=== PATIENT | female | born 1985 | race Caucasian/White ===

== ENCOUNTER 2018-12-11 22:58 | Emergency (ER) | payer MEDICAID ==
[2018-12-11 23:07] VITALS: BMI 29.2
[2018-12-11 23:12] VITALS: TEMP 98.3
[2018-12-11] MEDS ORDERED: Sodium Chloride 0.9% 1,000 ML IV STA (23:41)
--- NOTE | 2018-12-11 23:58 | ED PDOC ---
Arrival/HPI - General Historian: Patient - History of Present Illness Narrative History of Present Illness (Text): 12/11/18 23:55 33yo female with no pmhx who present with complaint of epigastric abdominal pain with nausea, vomiting and upper back pain. States abdominal pain started 3days ago and vomiting/back pain started today. did not take any medication for her symptoms. Reports having a BM but still feels constipated. Denies fever, chills, nausea, chest pain, melena, hematemesis, any other complaint. <Richard Reece - Last Filed: 12/12/18 01:51> <Wade Sarabia - Last Filed: 12/12/18 06:24> - General Chief Complaint: GI Problem Time Seen by Provider: 12/11/18 23:12 Past Medical History - Provider Review Nursing Documentation Reviewed: Yes - Infectious Disease Hx of Infectious Diseases: None - Reproductive Currently : No - Psychiatric Hx Substance Use: No - Anesthesia Hx Anesthesia: No Hx Anesthesia Reactions: No Hx Malignant Hyperthermia: No <Richard Reece A - Last Filed: 12/12/18 01:51> Family/Social History - Physician Review Nursing Documentation Reviewed: Yes Family/Social History: Unknown Family HX Smoking Status: Never Smoked Hx Alcohol Use: No Hx Substance Use: No <Richard Reece A - Last Filed: 12/12/18 01:51> Allergies/Home Meds <Richard Reece A - Last Filed: 12/12/18 01:51> <Wade Sarabia - Last Filed: 12/12/18 06:24> Allergies/Adverse Reactions: Allergies No Known Allergies Allergy (Verified 05/07/16 17:58) Home Medications: Home Meds Medication Instructions Recorded Confirmed RX: Doxycycline Hyclate [Doryx] 1 cap PO BID 12/11/18 12/11/18 Review of Systems - Physician Review All systems were reviewed & negative as marked: Yes - Review of Systems Constitutional: Normal Eyes: Normal ENT: Normal Respiratory: Normal Cardiovascular: Normal Gastrointestinal: Abdominal Pain, Nausea, Vomiting. absent: Constipation, Diarrhea, Hematochezia, Hematemesis Genitourinary Female: Normal Musculoskeletal: Back Pain Skin: Normal Neurological: Normal Endocrine: Normal Hemo/Lymphatic: Normal Psychiatric: Normal <Richard Reece A - Last Filed: 12/12/18 01:51> Physical Exam Vital Signs Reviewed: Yes Vital Signs Temp Pulse Resp BP Pulse Ox 12/11/18 23:11 98.3 F 109 H 18 120/83 95 Temperature: Afebrile Blood Pressure: Normal Pulse: Regular Respiratory Rate: Normal Appearance: Positive for: Well-Appearing, Non-Toxic, Comfortable Pain Distress: None Mental Status: Positive for: Alert and Oriented X 3 - Systems Exam Head: Present: Atraumatic, Normocephalic Pupils: Present: PERRL Extroacular Muscles: Present: EOMI Conjunctiva: Present: Normal Mouth: Present: Moist Mucous Membranes Neck: Present: Normal Range of Motion Respiratory/Chest: Present: Clear to Auscultation, Good Air Exchange. No: Respiratory Distress, Accessory Muscle Use Cardiovascular: Present: Regular Rate and Rhythm, Normal S1, S2. No: Murmurs Abdomen: Present: Tenderness (Epigastric), Normal Bowel Sounds (Hyperactive on upper abdomen), Guarding (Voluntary), Other (sofr). No: Distention, Peritoneal Signs, Rebound, McBurney's Point Tender, Rovsing's Sign Present Back: Present: Paraspinal Tenderness (Parathoracic tenderness). No: CVA Tenderness, Midline Tenderness, Pain with Leg Raise Upper Extremity: Present: Normal Inspection. No: Cyanosis, Edema Lower Extremity: Present: Normal Inspection. No: Edema Neurological: Present: GCS=15, CN II-XII Intact, Speech Normal Skin: Present: Warm, Dry, Normal Color. No: Rashes Psychiatric: Present: Alert, Oriented x 3, Normal Insight, Normal Concentration <Diru,Happiness A - Last Filed: 12/12/18 01:51> Vital Signs Temp Pulse Resp BP Pulse Ox 12/12/18 01:47 98.3 F 90 18 130/82 98 12/11/18 23:11 98.3 F 109 H 18 120/83 95 <Wade Sarabia - Last Filed: 12/12/18 06:24> Medical Decision Making ED Course and Treatment: 12/12/18 01:51 33yo female in ED for abdominal pain with nausea and vomiting Labs 1L NS, Pepcid, Zofran, Toradol Pt continued to complain of pain and abd/pelvic CT was ordered Moderate blood was noted in her UA 12/12/18 01:[address] report Case was endorsed to Dr. sarabia to f/u CT and dispo pt - Medication Orders Current Medication Orders: Sodium Chloride (Sodium Chloride 0.9%) 1,000 mls @ 1,000 mls/hr IV .Q1H STA Stop: 12/12/18 00:40 Discontinued Medications Famotidine (Pepcid) 20 mg IVP STAT STA Stop: 12/11/18 23:42 Ondansetron HCl (Zofran Inj) 4 mg IVP STAT STA Stop: 12/11/18 23:42 <Richard Reece A - Last Filed: 12/12/18 01:51> ED Course and Treatment: CT Abdomen and Pelvis: Chest: The visualized lung bases are clear. Abdomen: The kidneys are normal in size bilaterally. There is no evidence of hydronephrosis or nephrolithiasis. The liver, spleen, pancreas, gallbladder and adrenal glands are unremarkable. The aorta demonstrates normal caliber and contour. There is no abdominal lymphadenopathy or ascites. Pelvis: The bowel is unremarkable, with no obstructive or inflammatory changes. The appendix is normal. The urinary bladder is within normal limits. There is no pelvic lymphadenopathy or ascites. The other pelvic structures appear unremarkable. Bones: There are no suspicious osseous abnormalities seen. Impression: Unremarkable CT examination of the abdomen and pelvis. Electronically signed on Dec 12, 2018 2:50:23 AM EST by: Hong Payan M.D., SHEILA Certified By ABR & CBCCT Fellowship Trained MRI and CT Specialist - Lab Interpretations Lab Results: PT 16.1 SECONDS (9.4-12.5) H 12/12/18 00:21 INR 1.45 12/12/18 00:21 APTT 43.9 Seconds (26.9-38.3) H 12/12/18 00:21 Total Bilirubin 0.4 mg/dL (0.2-1.3) 12/12/18 00:21 AST 29 U/L (14-36) 12/12/18 00:21 ALT 31 U/L (7-56) 12/12/18 00:21 Alkaline Phosphatase 64 U/L (38-126) 12/12/18 00:21 Total Protein 7.5 g/dL (5.8-8.3) 12/12/18 00:21 Albumin 4.5 g/dL (3.0-4.8) 12/12/18 00:21 Globulin 3.0 gm/dL 12/12/18 00:21 Albumin/Globulin Ratio 1.5 (1.1-1.8) 12/12/18 00:21 Lipase 116 U/L (23-300) 12/12/18 00:21 Urine Color Yellow (YELLOW) 12/12/18 00:30 Urine Appearance Clear (CLEAR) 12/12/18 00:30 Urine pH 6.0 (4.7-8.0) 12/12/18 00:30 Ur Specific [place] 1.020 (1.005-1.035) 12/12/18 00:30 Urine Protein Negative mg/dL (<30 mg/dL) 12/12/18 00:30 Urine Glucose (UA) Negative mg/dL (NEGATIVE) 12/12/18 00:30 Urine Ketones Negative mg/dL (NEGATIVE) 12/12/18 00:30 Urine Blood Moderate (NEGATIVE) H 12/12/18 00:30 Urine Nitrate Negative (NEGATIVE) 12/12/18 00:30 Urine Bilirubin Negative (NEGATIVE) 12/12/18 00:30 Urine Urobilinogen 0.2 E.U./dL (<1 E.U./dL) 12/12/18 00:30 Ur Leukocyte Esterase Negative Joshua/uL (NEGATIVE) 12/12/18 00:30 Urine RBC 2 - 5 /hpf (0-2) H 12/12/18 00:30 Urine WBC 0 - 2 /hpf (0-6) 12/12/18 00:30 Ur Epithelial Cells 0 - 2 /hpf (0-5) 12/12/18 00:30 - RAD Interpretation Radiology Orders: 12/12/18 00:54 ABD & PELVIS W/O PO OR IV CONT [CT] Stat Medical Anthropology Director: Radiologist - Medication Orders Current Medication Orders: Discontinued Medications Famotidine (Pepcid) 20 mg IVP STAT STA Stop: 12/11/18 23:42 Last Admin: 12/12/18 00:22 Dose: 20 mg IVP Administration Document 12/12/18 00:22 DM (Rec: 12/12/18 00:22 DM [id number]) Charges for Administration # of IVP Administrations 1 Sodium Chloride (Sodium Chloride 0.9%) 1,000 mls @ 1,000 mls/hr IV .Q1H STA Stop: 12/12/18 00:40 Last Admin: 12/12/18 00:21 Dose: 1,000 mls/hr eMAR Start Stop Document 12/12/18 00:21 DM (Rec: 12/12/18 00:21 DM [id number]) Intravenous Solution Start Date 12/12/18 Start Time 00:21 Ketorolac Tromethamine (Toradol) 30 mg IVP STAT STA Stop: 12/12/18 00:55 Last Admin: 12/12/18 01:07 Dose: 30 mg MAR Pain Assessment Document 12/12/18 01:07 DM (Rec: 12/12/18 01:07 DM [id number]) Pain Reassessment Is this a pain reassessment? Yes Sleep Is patient sleeping during reassessment? No Presence of Pain Presence of Pain Yes Pain Scale Used Protocol: PSCALES Pain Scale Used Numeric Location Pain Location Body Site Abdomen Description Description Constant Acceptable Level of Pain 9 Pain Behavior Moaning Guarding Withdrawal from Touch Grasping Site Pain not relieved and LIP/MD was Yes notified IVP Administration Document 12/12/18 01:07 DM (Rec: 12/12/18 01:07 DM [id number]) Charges for Administration # of IVP Administrations 1 Ondansetron HCl (Zofran Inj) 4 mg IVP STAT STA Stop: 12/11/18 23:42 Last Admin: 12/12/18 00:21 Dose: 4 mg IVP Administration Document 12/12/18 00:21 DM (Rec: 12/12/18 00:21 DM [id number]) Charges for Administration # of IVP Administrations 1 <Wade Sarabia - Last Filed: 12/12/18 06:24> - PA / PLASTER MAKER / Resident Statement TIFFANY has reviewed & agrees with the documentation as recorded. TIFFANY has examined the patient and agrees with the treatment plan. <Wade Sarabia - Last Filed: 12/12/18 06:24> Disposition/Present on Arrival - Present on Arrival Any Indicators Present on Arrival: No History of DVT/PE: No History of Uncontrolled Diabetes: No Urinary Catheter: No History of Decub. Ulcer: No History Surgical Site Infection Following: None - Disposition Have Diagnosis and Disposition been Completed?: Yes <Richard Reece - Last Filed: 12/12/18 01:51> - Present on Arrival Any Indicators Present on Arrival: No - Disposition Have Diagnosis and Disposition been Completed?: Yes Disposition Time: 03:45 <Wade Sarabia - Last Filed: 12/12/18 06:24> - Disposition Diagnosis: Abdominal pain Disposition: HOME/ ROUTINE Condition: GOOD Discharge Instructions (ExitCare): Acute Abdomen (Belly Pain) Prescriptions: Pantoprazole Sodium [Protonix] 40 mg PO DAILY #14 ect Referrals: Danie Michael MD [Primary Care Provider] - Follow up with primary Forms: [facility] (Nepalese)
[2018-12-12 00:37] LABS: BASO # 0.02 K/mm3 (0.0-2.0); BASO % 0.2 % (0.0-3.0); EOS # 0.1 (0.0-0.7); EOS % 1.1 % (1.5-5.0); HEMOGLOBIN 13.7 g/dL (12.0-16.0); LYMPH # 2.8 (1.2-3.4); LYMPH % 24.7 % (22.0-35.0); MEAN CELL VOLUME 90.5 fl (80.0-105.0); MEAN CORPUSCULAR HEMOGLOBIN 30.2 pg (25.0-35.0); MEAN CORPUSCULAR HGB CONC 33.4 g/dl (31.0-37.0); MEAN PLATELET VOLUME 10.9 fl (7.0-11.0); MONO # 0.7 (0.1-0.6); MONO % 6.2 % (1.0-6.0); RBC 4.53 10^6/uL (3.5-6.1); RED CELL DISTRIBUTION WIDTH 12.9 % (11.5-14.5); WHITE BLOOD COUNT 11.4 10^3/uL (4.5-11.0)
[2018-12-12 00:42] LABS: INR 1.45; PARTIAL THROMBOPLASTIN TIME 43.9 Seconds (26.9-38.3); PROTHROMBIN TIME 16.1 SECONDS (9.4-12.5)
[2018-12-12 00:44] LABS: ALB/GLOB RATIO 1.5 (1.1-1.8); ALBUMIN 4.5 g/dL (3.0-4.8); ALT/SGPT 31 U/L (7-56); AST/SGOT 29 U/L (14-36); BLOOD UREA NITROGEN 15 mg/dL (7-21); CALCIUM 9.5 mg/dL (8.4-10.5); GFR NON-AFRICAN AMERICAN > 60; LIPASE 116 U/L (23-300)
[2018-12-12 00:51] LABS: URINE BILIRUBIN NEGATIVE (NEGATIVE); URINE BLOOD MODERATE (NEGATIVE); URINE GLUCOSE (UA) NEGATIVE (NEGATIVE); URINE LEUKOCYTE ESTERASE NEGATIVE Leu/uL (NEGATIVE); URINE PROTEIN NEGATIVE mg/dL (<30 mg/dL); URINE UROBILINOGEN 0.2 E.U./dL (<1 E.U./dL)
[2018-12-12 00:53] LABS: URINE COLOR YELLOW (YELLOW)
[2018-12-12 00:54] LABS: URINE APPEARANCE CLEAR (CLEAR)
[2018-12-12 01:18] LABS: URINE EPITHELIAL CELLS 0 - 2 /hpf (0-5); URINE WBC 0 - 2 /hpf (0-6)
[2018-12-12 03:41] VITALS: BP 134/68; PULSE 85; RESP 20; O2SAT 99
--- NOTE | 2018-12-12 10:54 | CT ---
Date of service: 12/12/2018 PROCEDURE: CT Abdomen and Pelvis HISTORY: Abdominal pain COMPARISON: None. TECHNIQUE: Contiguous axial images of the abdomen and pelvis performed without oral or intravenous contrast material. Additional 2D sagittal and coronal reformats generated... Radiation dose: Total exam DLP = 548.19 mGy-cm. This CT exam was performed using one or more of the following dose reduction techniques: Automated exposure control, adjustment of the mA and/or kV according to patient size, and/or use of iterative reconstruction technique. FINDINGS: LOWER THORAX: Heart size normal. No significant pericardial effusion. Small hiatal hernia. LIVER: Liver is upper limits of normal/mildly enlarged measuring nearly 19 cm in CC dimension. No obvious hepatic masses or collections. GALLBLADDER AND BILE DUCTS: Unremarkable. PANCREAS: Unremarkable. No mass. No ductal dilatation. SPLEEN: Unremarkable. No splenomegaly. ADRENALS: Unremarkable. KIDNEYS AND URETERS: Unremarkable. No stone or hydronephrosis. BLADDER: Grossly unremarkable. REPRODUCTIVE: Adnexal cyst small right-sided adnexal cyst measuring 18.5 x 12.5 mm. Follow-up nonemergent pelvic ultrasound could be performed for further evaluation APPENDIX: No evidence of acute appendicitis. BOWEL: Unremarkable. No obstruction. No gross mural thickening. PERITONEUM: Unremarkable. No fluid collection. No free air. LYMPH NODES: Unremarkable. No enlarged lymph nodes. VASCULATURE: Unremarkable. No aortic aneurysm. No aortic atherosclerotic calcification or mural plaque present. BONES: Minimal multilevel degenerative spondylosis of the lower thoracic spine. OTHER FINDINGS: None. IMPRESSION: Borderline-mildly enlarged liver measuring nearly 19 cm in CC dimension. Probable small right adnexal cyst for which ultrasound follow-up could be performed if clinically indicated This report was placed in PA review folder follow up.
== END 2018-12-12 03:41 | disposition home or self-care (01) ==
LOC: ED 22:58
DX: R10.13 Epigastric pain (principal)
CPT/HCPCS: 74176; 80053; 81001; 81025; 83690; 83735; 85025; 85610; 85730; 96374; 96375; 99284; J1885; J2405; J7030

== ENCOUNTER 2018-12-12 19:36 | Observation (INO) | payer MEDICAID ==
--- NOTE | 2018-12-12 21:23 | ED PDOC ---
Arrival/HPI - General Chief Complaint: Abdominal Pain Time Seen by Provider: 12/12/18 21:19 Historian: Patient - History of Present Illness Narrative History of Present Illness (Text): 12/12/18 21:23 Monty Cobb is a 33 year old female, with no significant past medical history, who presents to the Emergency department complaining of abdominal pain. Patient states she has been experiencing upper abdominal pain with associated nausea and vomiting. Patient was seen in the ED yesterday for similar complaints, had a CT scan performed, and was discharged home. Preliminary CT scan report was unremarkable, however patient was called back today after official CT scan report noted a borderline-mildly enlarged liver and small right adnexal cyst. Patient states she is still experiencing abdominal pain. Patient denies any fever, chills, chest pain, shortness of breath, urinary symptoms, back pain, neck pain, headache, dizziness, or any other complaints. Symptom Onset: Gradual Symptom Course: Unchanged Activities at Onset: Light Context: Home Past Medical History - Provider Review Nursing Documentation Reviewed: Yes - Infectious Disease Hx of Infectious Diseases: None - Reproductive Currently : No - Psychiatric Hx Substance Use: No - Anesthesia Hx Anesthesia: No Hx Anesthesia Reactions: No Hx Malignant Hyperthermia: No Family/Social History - Physician Review Nursing Documentation Reviewed: Yes Family/Social History: Unknown Family HX Smoking Status: Never Smoked Hx Alcohol Use: No Hx Substance Use: No Allergies/Home Meds Allergies/Adverse Reactions: Allergies No Known Allergies Allergy (Verified 05/07/16 17:58) Home Medications: Home Meds Medication Instructions Recorded Confirmed Doxycycline Hyclate [Doryx] 1 cap PO BID 12/11/18 12/11/18 Review of Systems - Physician Review All systems were reviewed & negative as marked: Yes - Review of Systems Constitutional: Normal. absent: Fevers Eyes: Normal ENT: Normal Respiratory: Normal. absent: SOB, Cough Cardiovascular: Normal. absent: Chest Pain Gastrointestinal: Abdominal Pain, Nausea, Vomiting Genitourinary Female: Normal. absent: Dysuria, Frequency, Hematuria, Urine Output Changes Musculoskeletal: Normal. absent: Back Pain, Neck Pain Skin: Normal. absent: Rash Neurological: Normal. absent: Headache, Dizziness Endocrine: Normal Hemo/Lymphatic: Normal Psychiatric: Normal Physical Exam Vital Signs Reviewed: Yes Vital Signs Temp Pulse Resp BP Pulse Ox 12/12/18 19:36 98 F 90 18 135/90 97 Temperature: Afebrile Blood Pressure: Normal Pulse: Regular Respiratory Rate: Normal Appearance: Positive for: Well-Appearing, Non-Toxic, Comfortable Pain Distress: None Mental Status: Positive for: Alert and Oriented X 3 - Systems Exam Head: Present: Atraumatic, Normocephalic Pupils: Present: PERRL Extroacular Muscles: Present: EOMI Conjunctiva: Present: Normal Mouth: Present: Moist Mucous Membranes Neck: Present: Normal Range of Motion Respiratory/Chest: Present: Clear to Auscultation, Good Air Exchange. No: Respiratory Distress, Accessory Muscle Use Cardiovascular: Present: Regular Rate and Rhythm, Normal S1, S2. No: Murmurs Abdomen: No: Tenderness, Distention, Peritoneal Signs Back: Present: Normal Inspection Upper Extremity: Present: Normal Inspection. No: Cyanosis, Edema Lower Extremity: Present: Normal Inspection. No: Edema Neurological: Present: GCS=15, CN II-XII Intact, Speech Normal Skin: Present: Warm, Dry, Normal Color. No: Rashes Psychiatric: Present: Alert, Oriented x 3, Normal Insight, Normal Concentration Medical Decision Making ED Course and Treatment: 12/12/18 21:23 Impression: 33 year old female complaining of upper abdominal pain, nausea, and vomiting. Plan: -- US Abdomen -- Transvaginal US -- Labs, lipase -- Urinalysis -- IV fluids -- Morphine -- Reassess and disposition Prior Visits: Notes and results from previous visits were reviewed. Progress Notes: 12/12/18 22:35 US Abdomen: LIVER: Unremarkable. GALLBLADDER: No gallstone. No gallbladder wall thickening. No pericholecystic fluid. COMMON BILE DUCT: No dilation. 4 mm. PANCREAS: Unremarkable where visualized. The distal pancreas is obscured by overlying bowel gas. KIDNEYS: Unremarkable. Normal renal contours. No renal mass or calculus. No hydronephrosis. SPLEEN: Unremarkable. AORTA: No aneurysm. IVC: Unremarkable as visualized. MISCELLANEOUS: No other significant findings identified. IMPRESSION: Unremarkable complete abdominal ultrasound. Electronically signed on Dec 12, 2018 10:31:17 PM EST by: Hong Payan M.D., SHEILA Certified By ABR & CBCCT Fellowship Trained MRI and CT Specialist 12/12/18 23:00 Transvaginal US: ENDOMETRIUM: Normal thickness of 3.4 mm in AP dimension. UTERUS/CERVIX: The uterus appears within normal limits measuring 9.4 x 4.2 x 5.9 cm in longitudinal, AP and transverse dimensions respectively. No uterine fibroid or other mass evident. RIGHT OVARY: Normal Doppler flow. Slightly enlarged measuring approximate 4.1 x 2.1 cm with estimated volume of 21.9 cubic centimeters. Within the right ovary there is demonstration of a 2.2 x 1.8 x 1.8 cm follicular cyst. LEFT OVARY: Normal Doppler flow. Normal size of the left ovary which measured 2.7 x 2.6 x 2.2 cm. The estimated left ovarian volume is 7.7 cm. No abnormal mass. FREE FLUID: Minimal free fluid within the posterior cul-de-sac. IMPRESSION: 1. Right ovarian enlargement with measurements as given above. 2. A 2.2 x 1.8 x 1.8 cm right ovarian follicular cyst is noted. 3. A small volume of fluid is seen in the posterior cul-de-sac. Electronically signed on Dec 12, 2018 10:57:38 PM EST by: Hong Payan M.D., SHEILA Certified By ABR & CBCCT Fellowship Trained MRI and CT Specialist 12/12/18 23:27 Case discussed with medical radiation therapist immigration associate, who is aware and agrees with plan. 12/12/18 23:[address] Ted Baxter, who is aware and agrees with plan. Accepts pt in to hospitalist service. Pt will go to [facility] observation for abdominal pain. - Lab Interpretations I have reviewed the lab results: Yes - RAD Interpretation Flat Breakdown Processor: Radiologist Disposition/Present on Arrival - Present on Arrival Any Indicators Present on Arrival: No History of DVT/PE: No History of Uncontrolled Diabetes: No Urinary Catheter: No History of Decub. Ulcer: No History Surgical Site Infection Following: None - Disposition Have Diagnosis and Disposition been Completed?: Yes Diagnosis: Abdominal pain Disposition: HOSPITALIZED Disposition Time: 23:50 Condition: FAIR
[2018-12-12] MEDS ORDERED: Morphine 2 mg/ml ISec IVP STA ×2 (21:25→23:55)
[2018-12-12] MEDS: Sodium Chloride 0.9% 1,000 ML IV SCH (21:49)
[2018-12-12 21:54] LABS: BASO # 0.02 K/mm3 (0.0-2.0); BASO % 0.2 % (0.0-3.0); EOS # 0.1 (0.0-0.7); EOS % 0.9 % (1.5-5.0); HEMOGLOBIN 12.5 g/dL (12.0-16.0); LYMPH # 2.3 (1.2-3.4); LYMPH % 23.8 % (22.0-35.0); MEAN CELL VOLUME 91.4 fl (80.0-105.0); MEAN CORPUSCULAR HEMOGLOBIN 29.7 pg (25.0-35.0); MEAN CORPUSCULAR HGB CONC 32.5 g/dl (31.0-37.0); MEAN PLATELET VOLUME 10.7 fl (7.0-11.0); MONO % 9.9 % (1.0-6.0); RBC 4.21 10^6/uL (3.5-6.1); RED CELL DISTRIBUTION WIDTH 13.2 % (11.5-14.5); WHITE BLOOD COUNT 9.7 10^3/uL (4.5-11.0)
[2018-12-12 22:04] LABS: INR 1.5; PARTIAL THROMBOPLASTIN TIME 43.5 Seconds (26.9-38.3); PROTHROMBIN TIME 16.7 SECONDS (9.4-12.5)
[2018-12-12 22:09] LABS: ALB/GLOB RATIO 1.4 (1.1-1.8); ALBUMIN 4.2 g/dL (3.0-4.8); ALT/SGPT 25 U/L (7-56); AST/SGOT 22 U/L (14-36); BLOOD UREA NITROGEN 11 mg/dL (7-21); CALCIUM 8.8 mg/dL (8.4-10.5); GFR NON-AFRICAN AMERICAN > 60; LIPASE 57 U/L (23-300)
--- NOTE | 2018-12-13 00:07 | CP.PCM.HP ---
History of Present Illness - History of Present Illness History of Present Illness: Medicine History and Physical for Hospitalist Service, Dr. Richard Morton, DO PGY-1 This is a 33 y o female with no remarkable PMhx who presents to the ED c/o b/l upper abdominal pain, R > L for 4 days. States she had colposcopy performed in clinic for abnormal pap smear results 4 days ago, and states the abd pain started several hrs after she had her procedure. Denies any other inciting factors that might have elicited her symptoms. Denies hx sick contacts, recent URI symptoms, trying any recent foods, or recent travel. Pt states she recently went to ED at [facility] [place] [facility] yesterday for the same symptoms, had CT scan done, and was sent home with script of Protonix. Pt states she took 1 dose of that medication, did not feel relief of symptoms, and thus decided to come to the ED again to be evaluated. States she feels generalized "achiness" all over her belly, admits to gas pain, states that she is unable to pass flatus. Reports last BM was 2 days ago. States that from time to time she has periods where she does not have a bowel movement for several days, even when she is feeling well. Admits to belching frequently, c/o associated heartburn-like symptoms. States she tried to induce vomiting to relieve her symptoms without relief. Admits to associated nausea. Also admits to diffuse back pain present in the entirety of her spine, more present in her lower back b/l. Admits to subjective fever and chills. D enies diarrhea. Denies headache, dizziness, shortness of breath, urinary complaints, or other symptoms currently. PMhx: none PSurgHx: none POBHx: s/p 3 full-term NSVDs, no complications PGynHx: denies hx of ovarian cysts, fibroids; reports recent abnormal pap smear; denies hx Of STDs; currently on Depo-Provera control q 3 mos for injections, reports being compliant with therapy and not missing doses; LMP Oct 2019. Pt states she has been getting periods every few months since being on her control Allergies: NKDA Home meds: none Fam hx: Dad in 20s of unknown cause; Mom alive and well, siblings alive and well; denies hx of malignancies or cardiac hx in family Soc hx: Denies smoking, EtOH or illicit drug use; lives at home with 3 children, autu-od-bite mom PMD: Dr. Michael Present on Admission - Present on Admission Any Indicators Present on Admission: No History of DVT/PE: No History of Uncontrolled Diabetes: No Urinary Catheter: No Decubitus Ulcer Present: No Review of Systems - Constitutional Constitutional: Anorexia, Chills, Fever. absent: Night Sweats, Weight Loss - Cardiovascular Cardiovascular: absent: Chest Pain, Dyspnea on Exertion, Leg Edema, Syncope - Respiratory Respiratory: absent: Cough, Dyspnea, Wheezing, Chest Congestion - Gastrointestinal Gastrointestinal: Abdominal Pain, Belching, Bloating, Constipation, Heartburn, Nausea, Vomiting. absent: Diarrhea Past Patient History - Infectious Disease Hx of Infectious Diseases: None - Past Social History Smoking Status: Never Smoked - PSYCHIATRIC Hx Substance Use: No - SURGICAL HISTORY Hx Surgeries: No - ANESTHESIA Hx Anesthesia: No Hx Anesthesia Reactions: No Hx Malignant Hyperthermia: No Meds Allergies/Adverse Reactions: Allergies Allergy/AdvReac Type Severity Reaction Status Date / Time No Known Allergies Allergy Verified 05/07/16 17:58 Physical Exam - Constitutional Appears: Non-toxic, No Acute Distress - Head Exam Head Exam: ATRAUMATIC, NORMOCEPHALIC - Eye Exam Eye Exam: EOMI, Normal appearance, PERRL - ENT Exam ENT Exam: Mucous Membranes Moist, Normal Oropharynx - Neck Exam Neck exam: Positive for: Full Rom, Normal Inspection. Negative for: Lymphadenopathy, Tenderness - Respiratory Exam Respiratory Exam: Clear to Auscultation Bilateral, NORMAL BREATHING PATTERN. absent: Rales, Rhonchi, Wheezes - Cardiovascular Exam Cardiovascular Exam: REGULAR RHYTHM, +S1, +S2. absent: Gallop, Rubs, Systolic Murmur - GI/Abdominal Exam GI & Abdominal Exam: Normal Bowel Sounds, Soft, Tenderness Additional comments: Tenderness to palpation most prominent in RUQ on exam - Extremities Exam Extremities exam: Positive for: full ROM, normal capillary refill, normal inspection, pedal pulses present. Negative for: calf tenderness, pedal edema - Back Exam Additional comments: CVA tenderness present on the L side - Neurological Exam Neurological exam: Alert, CN II-XII Intact, Oriented x3, Reflexes Normal - Skin Skin Exam: Dry, Intact, Normal Color, Warm Results - Vital Signs Recent Vital Signs: Last Vital Signs Temp 98 F 12/12/18 19:36 Pulse 90 12/12/18 19:36 Resp 18 12/12/18 19:36 BP 135/90 12/12/18 19:36 Pulse Ox 97 12/12/18 19:36 - Labs Result Diagrams: 12/12/18 21:49 12/12/18 21:49 Labs: Laboratory Results - last 24 hr 12/12/18 12/12/18 12/12/18 21:49 21:49 21:49 WBC 9.7 RBC 4.21 Hgb 12.5 Hct 38.5 MCV 91.4 MCH 29.7 MCHC 32.5 RDW 13.2 Plt Count 221 MPV 10.7 Neut % (Auto) 65.2 Lymph % (Auto) 23.8 [place] % (Auto) 9.9 H Eos % (Auto) 0.9 L Baso % (Auto) 0.2 Lymph # (Auto) 2.3 [place] # (Auto) 1.0 H Eos # (Auto) 0.1 Baso # (Auto) 0.02 Absolute Neuts (auto) 6.33 PT 16.7 H INR 1.50 APTT 43.5 H Sodium 138 Potassium 4.1 Chloride 108 H Carbon Dioxide 23 Anion Gap 12 BUN 11 Creatinine 0.8 Est GFR ( Amer) > 60 Est GFR (Non-Af Amer) > 60 Random Glucose 88 Calcium 8.8 Magnesium 1.8 Total Bilirubin 0.8 AST 22 ALT 25 Alkaline Phosphatase 54 Total Protein 7.2 Albumin 4.2 Globulin 3.0 Albumin/Globulin Ratio 1.4 Lipase 57 Assessment & Plan - Assessment and Plan (Free Text) Assessment: This is a 33 y o female with no remarkable PMhx who presents to the ED c/o b/l upper abdominal pain, R > L for 4 days. Admitted for intractable abd pain. R/o infection, obstruction as etiology of symptoms. Plan: Intractable Abd Pain -May be 2/2 gastroenteritis, vs. hepatomegaly, vs. R adnexal cyst, ?possible cyst rupture of ovary -Admit to med/surg -NPO -IVF at 80 cc/hr -GI consulted (Dr. Mae), recs appreciated -Seo Engineer consulted (Dr. Zapien), recs appreciated -Morphine 1 mg q4h prn for pain -Zofran prn for nausea -CT abd/pelvis done on 12/12/18 demonstrated borderline mildly enlarged liver measuring nearly 19 cm in CC dimension. Small R adnexal cyst. -Abd U/s unremarkable -Transvaginal U/s: R ovarian enlargement 2.2 cm x 1.8 cm x 1.8 cm follicular ovarian cyst, small amt fluid in posterior cul-de-sac -No leukocytosis on admission -Lipase, LFTs wnl -Pending hepatitis panel, HIV, CMV, EBV, ESR -U/a, urine cx pending -Blood cx pending -Abd flat plate XR ordered to r/o obstruction Coagulopathy -PT, PTT elevated on admission -R/o liver disease, factor deficiency, autoimmune as etiology -Etiology unknown at this time; pt only on Depo-Provera injections q 3 mos, not on any estrogen-containing meds outpatient that could cause increased risk of clot -Hepatomegaly noted on CT scan from 12/12/18 -Pt denied family hx of blood disorders or blood clots DVT/GI ppx: SCDs/Protonix Pt seen, examined with, and plan discussed with Dr. Richard Baxter, attending physician. Nuno Morton DO PGY-1, Hoist Cylinder Loader Pager #[phone]
[2018-12-13] MEDS: Morphine 2 mg/ml ISec IVP PRN ×5 (02:27→21:28)
[2018-12-13 07:09] LABS: BASO # 0.02 K/mm3 (0.0-2.0); BASO % 0.3 % (0.0-3.0); EOS # 0.2 (0.0-0.7); HEMOGLOBIN 11.8 g/dL (12.0-16.0); LYMPH # 2.5 (1.2-3.4); LYMPH % 31.1 % (22.0-35.0); MEAN CELL VOLUME 91.8 fl (80.0-105.0); MEAN CORPUSCULAR HEMOGLOBIN 29.3 pg (25.0-35.0); MEAN CORPUSCULAR HGB CONC 31.9 g/dl (31.0-37.0); MEAN PLATELET VOLUME 10.7 fl (7.0-11.0); MONO % 12.1 % (1.0-6.0); RBC 4.03 10^6/uL (3.5-6.1); RED CELL DISTRIBUTION WIDTH 13.2 % (11.5-14.5); WHITE BLOOD COUNT 7.9 10^3/uL (4.5-11.0)
[2018-12-13 07:22] VITALS: BMI 30.2
[2018-12-13 07:42] LABS: ALB/GLOB RATIO 1.4 (1.1-1.8); ALBUMIN 3.9 g/dL (3.0-4.8); ALT/SGPT 19 U/L (7-56); AST/SGOT 19 U/L (14-36); BLOOD UREA NITROGEN 8 mg/dL (7-21); CALCIUM 8.7 mg/dL (8.4-10.5); GFR NON-AFRICAN AMERICAN > 60
[2018-12-13] MEDS: Sodium Chloride 0.9% 1,000 ML IV SCH (10:24)
[2018-12-13 12:59] LABS: HEPATITIS B SURFACE AG Negative (NEGATIVE)
[2018-12-13 13:04] LABS: HEPATITIS A IGM NEGATIVE (NEGATIVE); HEPATITIS B CORE AB NEGATIVE (NEGATIVE)
--- NOTE | 2018-12-13 13:13 | RAD ---
Date of service: 12/13/2018 HISTORY: r/o obstruction COMPARISON: None available. FINDINGS: BOWEL: Normal. No obstruction. No free air. BONES: Normal. OTHER FINDINGS: None. IMPRESSION: No active disease.
[2018-12-13 13:16] LABS: HEPATITIS C ANTIBODY NEGATIVE (NEGATIVE)
[2018-12-13 13:34] LABS: INR 1.55; PARTIAL THROMBOPLASTIN TIME 44.7 Seconds (26.9-38.3); PROTHROMBIN TIME 17.5 SECONDS (9.4-12.5)
--- NOTE | 2018-12-13 15:45 | CP.PCM.CON ---
<Abel Eric - Last Filed: 12/13/18 16:52> History of Present Illness - History of Present Illness History of Present Illness: GI Consult Note for Dr. Mae Reason for Consultation: Abdominal pain Patient is a 33 yo F with no significant PMH presents to [facility] due to a 4 day history of upper abdominal pain, R > L. Patient states the abdominal pain started she had colposcopy due to abnromal pap smear. Patient states that the pain is constant, achey, and she feals bloated. Patient denies any aggravating or alleviating factors. Patient states that that she has not had a BM for 2 days, nor has she passed flatus. Patient also complains of heartburn, pain which starts in the epigastric region and radiates upwards. Patient complains of nausea, but no vomiting. Patient denies CP, SOB, vomiting, diarrhea, fever, chills, BRIONES, melena, hematochezia, dysuria, or dizziness. PMH: Denied Surg: Denied All: NKDA SH: Denied EtOH, tobacco, or illicit drug use FHx: No GI history Medication: Depo-provera q 3 months Review of Systems - Review of Systems All systems: reviewed and no additional remarkable complaints except (12 point ROS reviewed) Past Patient History - Infectious Disease Hx of Infectious Diseases: None - Past Social History Smoking Status: Never Smoked - MUSCULOSKELETAL/RHEUMATOLOGICAL Hx Falls: No - PSYCHIATRIC Hx Substance Use: No - SURGICAL HISTORY Hx Surgeries: No - ANESTHESIA Hx Anesthesia: No Hx Anesthesia Reactions: No Hx Malignant Hyperthermia: No Meds Allergies/Adverse Reactions: Allergies Allergy/AdvReac Type Severity Reaction Status Date / Time No Known Allergies Allergy Verified 05/07/16 17:58 - Medications Medications: Current Medications Sodium Chloride (Sodium Chloride 0.9%) 1,000 mls @ 80 mls/hr IV .[id number] [facility] Last Admin: 12/13/18 10:24 Dose: 80 mls/hr Morphine Sulfate (Morphine) 1 mg IVP Q4H PRN PRN Reason: Pain, severe (8-10) Last Admin: 12/13/18 13:16 Dose: 1 mg Ondansetron HCl (Zofran Inj) 4 mg IVP Q6H PRN PRN Reason: Nausea/Vomiting Pantoprazole Sodium (Protonix Inj) 40 mg IVP DAILY [facility] Last Admin: 12/13/18 09:25 Dose: 40 mg Physical Exam - Constitutional Appears: No Acute Distress - Head Exam Head Exam: NORMAL INSPECTION - Eye Exam Eye Exam: Normal appearance - ENT Exam ENT Exam: Mucous Membranes Moist, Normal Exam - Neck Exam Neck exam: Positive for: Normal Inspection - Respiratory Exam Respiratory Exam: Clear to Auscultation Bilateral. absent: Rales, Rhonchi, Wheezes - Cardiovascular Exam Cardiovascular Exam: Tachycardia, REGULAR RHYTHM, +S1, +S2. absent: Diastolic murmur, Gallop, Rubs, Systolic Murmur - GI/Abdominal Exam GI & Abdominal Exam: Normal Bowel Sounds, Soft, Tenderness (RUQ>LUQ, epigastr ic). absent: Distended, Guarding, Rebound - Extremities Exam Extremities exam: Positive for: normal inspection - Back Exam Back exam: NORMAL INSPECTION - Neurological Exam Neurological exam: Alert, Oriented x3 - Skin Skin Exam: Normal Color, Warm Results - Vital Signs Recent Vital Signs: Last Vital Signs Temp 98 F 12/13/18 06:00 Pulse 88 12/13/18 06:00 Resp 20 12/13/18 06:46 BP 133/89 12/13/18 06:00 Pulse Ox 100 12/13/18 06:00 - Labs Result Diagrams: 12/13/18 06:15 12/13/18 06:15 Labs: Laboratory Results - last 24 hr 12/12/18 12/12/18 12/12/18 21:49 21:49 21:49 WBC 9.7 RBC 4.21 Hgb 12.5 Hct 38.5 MCV 91.4 MCH 29.7 MCHC 32.5 RDW 13.2 Plt Count 221 MPV 10.7 Neut % (Auto) 65.2 Lymph % (Auto) 23.8 [place] % (Auto) 9.9 H Eos % (Auto) 0.9 L Baso % (Auto) 0.2 Lymph # (Auto) 2.3 [place] # (Auto) 1.0 H Eos # (Auto) 0.1 Baso # (Auto) 0.02 Absolute Neuts (auto) 6.33 ESR PT 16.7 H INR 1.50 APTT 43.5 H Fibrinogen Fibrin Degrad Products Sodium 138 Potassium 4.1 Chloride 108 H Carbon Dioxide 23 Anion Gap 12 BUN 11 Creatinine 0.8 Est GFR ( Amer) > 60 Est GFR (Non-Af Amer) > 60 Random Glucose 88 Calcium 8.8 Phosphorus Magnesium 1.8 Total Bilirubin 0.8 AST 22 ALT 25 Alkaline Phosphatase 54 Total Protein 7.2 Albumin 4.2 Globulin 3.0 Albumin/Globulin Ratio 1.4 Lipase 57 Hepatitis A IgM Ab Hep Bs Antigen Hep B Core IgM Ab Hepatitis C Antibody 12/12/18 12/12/18 12/13/18 21:49 21:49 06:15 WBC 7.9 RBC 4.03 Hgb 11.8 L Hct 37.0 MCV 91.8 MCH 29.3 MCHC 31.9 RDW 13.2 Plt Count 214 MPV 10.7 Neut % (Auto) 54.5 Lymph % (Auto) 31.1 [place] % (Auto) 12.1 H Eos % (Auto) 2.0 Baso % (Auto) 0.3 Lymph # (Auto) 2.5 [place] # (Auto) 1.0 H Eos # (Auto) 0.2 Baso # (Auto) 0.02 Absolute Neuts (auto) 4.30 ESR 2 PT INR APTT Fibrinogen Fibrin Degrad Products Sodium Potassium Chloride Carbon Dioxide Anion Gap BUN Creatinine Est GFR ( Amer) Est GFR (Non-Af Amer) Random Glucose Calcium Phosphorus Magnesium Total Bilirubin AST ALT Alkaline Phosphatase Total Protein Albumin Globulin Albumin/Globulin Ratio Lipase Hepatitis A IgM Ab Negative Hep Bs Antigen Negative Hep B Core IgM Ab Negative Hepatitis C Antibody Negative 12/13/18 12/13/18 12/13/18 06:15 08:30 08:30 WBC RBC Hgb Hct MCV MCH MCHC RDW Plt Count MPV Neut % (Auto) Lymph % (Auto) [place] % (Auto) Eos % (Auto) Baso % (Auto) Lymph # (Auto) [place] # (Auto) Eos # (Auto) Baso # (Auto) Absolute Neuts (auto) ESR PT INR APTT Fibrinogen 345 Fibrin Degrad Products <10 ug/ml Sodium 139 Potassium 3.6 Chloride 109 H Carbon Dioxide 23 Anion Gap 11 BUN 8 Creatinine 0.7 Est GFR ( Amer) > 60 Est GFR (Non-Af Amer) > 60 Random Glucose 84 Calcium 8.7 Phosphorus 3.3 Magnesium 1.8 Total Bilirubin 1.0 AST 19 ALT 19 Alkaline Phosphatase 54 Total Protein 6.7 Albumin 3.9 Globulin 2.8 Albumin/Globulin Ratio 1.4 Lipase Hepatitis A IgM Ab Hep Bs Antigen Hep B Core IgM Ab Hepatitis C Antibody 12/13/18 13:00 WBC RBC Hgb Hct MCV MCH MCHC RDW Plt Count MPV Neut % (Auto) Lymph % (Auto) [place] % (Auto) Eos % (Auto) Baso % (Auto) Lymph # (Auto) [place] # (Auto) Eos # (Auto) Baso # (Auto) Absolute Neuts (auto) ESR PT 17.5 H INR 1.55 APTT 44.7 H Fibrinogen Fibrin Degrad Products Sodium Potassium Chloride Carbon Dioxide Anion Gap BUN Creatinine Est GFR ( Amer) Est GFR (Non-Af Amer) Random Glucose Calcium Phosphorus Magnesium Total Bilirubin AST ALT Alkaline Phosphatase Total Protein Albumin Globulin Albumin/Globulin Ratio Lipase Hepatitis A IgM Ab Hep Bs Antigen Hep B Core IgM Ab Hepatitis C Antibody Assessment & Plan - Assessment and Plan (Free Text) Assessment: 33 yo F with no significant PMH presents to [facility] with abdominal pain. - Abd/pelvis CT showed mild hepatomegaly, right-sided adnexal cyst - Abd US negative - Transvaginal US showed right ovarian enlargement and right ovarian follicular cyst 1. Abdominal pain 2. Constipation 3. Right ovarian enlargement/cyst 4. Coagulopathy Plan: - Abdomen duplex ordered r/o Budd Chiari, portal vein thrombosis - Cont PPI - Hepatitis panel negative - Coagulopathy workup ordered per primary - Diet as tolerated Patient discussed in detail with Dr. Mae. Anselmo Eric DO PGY2 <Severo Mae V - Last Filed: 12/14/18 00:00> Meds - Medications Medications: Current Medications Sodium Chloride (Sodium Chloride 0.9%) 1,000 mls @ 80 mls/hr IV .[id number] [facility] Last Admin: 12/13/18 10:24 Dose: 80 mls/hr Morphine Sulfate (Morphine) 1 mg IVP Q4H PRN PRN Reason: Pain, severe (8-10) Last Admin: 12/13/18 21:28 Dose: 1 mg Ondansetron HCl (Zofran Inj) 4 mg IVP Q6H PRN PRN Reason: Nausea/Vomiting Pantoprazole Sodium (Protonix Inj) 40 mg IVP DAILY [facility] Last Admin: 12/13/18 09:25 Dose: 40 mg Polyethylene Glycol (Miralax) 17 gm PO DAILY [facility] Last Admin: 12/13/18 17:55 Dose: 17 gm Results - Vital Signs Recent Vital Signs: Last Vital Signs Temp 99 F 12/13/18 22:48 Pulse 102 H 12/13/18 22:48 Resp 20 12/13/18 22:48 BP 134/91 H 12/13/18 22:48 Pulse Ox 99 12/13/18 22:48 - Labs Result Diagrams: 12/13/18 06:15 12/13/18 06:15 Labs: Laboratory Results - last 24 hr 12/12/18 12/12/18 12/13/18 21:49 21:49 06:15 WBC 7.9 RBC 4.03 Hgb 11.8 L Hct 37.0 MCV 91.8 MCH 29.3 MCHC 31.9 RDW 13.2 Plt Count 214 MPV 10.7 Neut % (Auto) 54.5 Lymph % (Auto) 31.1 [place] % (Auto) 12.1 H Eos % (Auto) 2.0 Baso % (Auto) 0.3 Lymph # (Auto) 2.5 [place] # (Auto) 1.0 H Eos # (Auto) 0.2 Baso # (Auto) 0.02 Absolute Neuts (auto) 4.30 ESR 2 PT INR APTT Fibrinogen Fibrin Degrad Products Sodium Potassium Chloride Carbon Dioxide Anion Gap BUN Creatinine Est GFR ( Amer) Est GFR (Non-Af Amer) Random Glucose Calcium Phosphorus Magnesium Total Bilirubin AST ALT Alkaline Phosphatase Total Protein Albumin Globulin Albumin/Globulin Ratio Urine Color Urine Appearance Urine pH Ur Specific [place] Urine Protein Urine Glucose (UA) Urine Ketones Urine Blood Urine Nitrate Urine Bilirubin Urine Urobilinogen Ur Leukocyte Esterase Urine RBC Urine WBC Ur Epithelial Cells Urine Bacteria Hepatitis A IgM Ab Negative Hep Bs Antigen Negative Hep B Core IgM Ab Negative Hepatitis C Antibody Negative 12/13/18 12/13/18 12/13/18 06:15 08:30 08:30 WBC RBC Hgb Hct MCV MCH MCHC RDW Plt Count MPV Neut % (Auto) Lymph % (Auto) [place] % (Auto) Eos % (Auto) Baso % (Auto) Lymph # (Auto) [place] # (Auto) Eos # (Auto) Baso # (Auto) Absolute Neuts (auto) ESR PT INR APTT Fibrinogen 345 Fibrin Degrad Products <10 ug/ml Sodium 139 Potassium 3.6 Chloride 109 H Carbon Dioxide 23 Anion Gap 11 BUN 8 Creatinine 0.7 Est GFR ( Amer) > 60 Est GFR (Non-Af Amer) > 60 Random Glucose 84 Calcium 8.7 Phosphorus 3.3 Magnesium 1.8 Total Bilirubin 1.0 AST 19 ALT 19 Alkaline Phosphatase 54 Total Protein 6.7 Albumin 3.9 Globulin 2.8 Albumin/Globulin Ratio 1.4 Urine Color Urine Appearance Urine pH Ur Specific [place] Urine Protein Urine Glucose (UA) Urine Ketones Urine Blood Urine Nitrate Urine Bilirubin Urine Urobilinogen Ur Leukocyte Esterase Urine RBC Urine WBC Ur Epithelial Cells Urine Bacteria Hepatitis A IgM Ab Hep Bs Antigen Hep B Core IgM Ab Hepatitis C Antibody 12/13/18 12/13/18 13:00 16:30 WBC RBC Hgb Hct MCV MCH MCHC RDW Plt Count MPV Neut % (Auto) Lymph % (Auto) [place] % (Auto) Eos % (Auto) Baso % (Auto) Lymph # (Auto) [place] # (Auto) Eos # (Auto) Baso # (Auto) Absolute Neuts (auto) ESR PT 17.5 H INR 1.55 APTT 44.7 H Fibrinogen Fibrin Degrad Products Sodium Potassium Chloride Carbon Dioxide Anion Gap BUN Creatinine Est GFR ( Amer) Est GFR (Non-Af Amer) Random Glucose Calcium Phosphorus Magnesium Total Bilirubin AST ALT Alkaline Phosphatase Total Protein Albumin Globulin Albumin/Globulin Ratio Urine Color Yellow Urine Appearance Turbid Urine pH 6.5 Ur Specific [place] 1.020 Urine Protein Negative Urine Glucose (UA) Negative Urine Ketones 15 H Urine Blood Small H Urine Nitrate Negative Urine Bilirubin Negative Urine Urobilinogen 0.2 Ur Leukocyte Esterase Moderate H Urine RBC 0 - 2 Urine WBC 15 - 20 H Ur Epithelial Cells 4 - 5 Urine Bacteria Trace Hepatitis A IgM Ab Hep Bs Antigen Hep B Core IgM Ab Hepatitis C Antibody Attending/Attestation - Attestation I have personally seen and examined this patient.: Yes I have fully participated in the care of the patient.: Yes I have reviewed all pertinent clinical information: Yes Notes (Text): This is an addendum to GI consult report dictated by the Real Estate Branch Manager. The patient was seen and evaluated earlier. Medical records, lab studies, imagings were reviewed. Last 24 hours events reviewed. Agreed with the above treatment plan as outlined in Real Estate Branch Manager 's notes with the addition of the following 12/13/18 23:59
--- NOTE | 2018-12-13 15:59 | US ---
Date of service: 12/12/2018 HISTORY: abd pain COMPARISON: None. TECHNIQUE: Sonographic evaluation of the abdomen. FINDINGS: LIVER: Measures cm. Normal echogenicity of the liver parenchyma. No mass. No intrahepatic bile duct dilatation. GALLBLADDER: Unremarkable. No gallstones. COMMON BILE DUCT: Measures mm. No stones. No dilatation. PANCREAS: Unremarkable as visualized. No mass. No ductal dilatation. RIGHT KIDNEY: Measures cm. Normal echogenicity. No calculus, mass, or hydronephrosis. LEFT KIDNEY: Measures cm. Normal echogenicity. No calculus, mass, or hydronephrosis. SPLEEN: Normal in size and contour. No mass. AORTA: No aneurysmal dilatation. IVC: Unremarkable. OTHER FINDINGS: None. IMPRESSION: Unremarkable abdominal sonogram.
--- NOTE | 2018-12-13 16:04 | US ---
Date of service: 12/12/2018 PROCEDURE: HISTORY: abd pain COMPARISON: TECHNIQUE: FINDINGS: The uterus measures 9.3 x 4.2 x 5.9 centimeters. The endometrium measures 3 millimeters. There is free fluid the pelvis. There is a right ovarian cyst measuring 2.2 centimeters. Otherwise the ovaries have a normal sonographic appearance. IMPRESSION: 2.2 centimeters simple cyst in the right ovary. Small amount of free fluid the pelvis.
[2018-12-13 16:47] LABS: PH,URINE 6.5 (4.7-8.0); URINE APPEARANCE TURBID (CLEAR); URINE BILIRUBIN NEGATIVE (NEGATIVE); URINE BLOOD SMALL (NEGATIVE); URINE COLOR YELLOW (YELLOW); URINE GLUCOSE (UA) NEGATIVE (NEGATIVE); URINE LEUKOCYTE ESTERASE MODERATE Leu/uL (NEGATIVE); URINE PROTEIN NEGATIVE mg/dL (<30 mg/dL); URINE UROBILINOGEN 0.2 E.U./dL (<1 E.U./dL)
[2018-12-13 17:03] LABS: URINE BACTERIA TRACE /hpf; URINE RBC 0 - 2 /hpf (0-2); URINE WBC 15 - 20 /hpf (0-6)
[2018-12-13] MEDS: POLYETHYLENE GLYCOL 3350 17 GM/Dose PACKET PO SCH (17:55)
[2018-12-14] MEDS: Morphine 2 mg/ml ISec IVP PRN ×4 (01:49→20:41)
[2018-12-14 07:19] LABS: BASO # 0.03 K/mm3 (0.0-2.0); BASO % 0.5 % (0.0-3.0); EOS # 0.2 (0.0-0.7); EOS % 3.5 % (1.5-5.0); HEMOGLOBIN 11.5 g/dL (12.0-16.0); LYMPH # 2.7 (1.2-3.4); MEAN CELL VOLUME 91.7 fl (80.0-105.0); MEAN CORPUSCULAR HEMOGLOBIN 28.8 pg (25.0-35.0); MEAN CORPUSCULAR HGB CONC 31.4 g/dl (31.0-37.0); MEAN PLATELET VOLUME 10.8 fl (7.0-11.0); MONO # 0.5 (0.1-0.6); MONO % 8.5 % (1.0-6.0); RBC 3.99 10^6/uL (3.5-6.1); WHITE BLOOD COUNT 6.2 10^3/uL (4.5-11.0)
[2018-12-14 08:03] LABS: ALB/GLOB RATIO 1.4 (1.1-1.8); ALBUMIN 3.8 g/dL (3.0-4.8); ALT/SGPT 19 U/L (7-56); AST/SGOT 29 U/L (14-36); BLOOD UREA NITROGEN 7 mg/dL (7-21); CALCIUM 8.7 mg/dL (8.4-10.5); GFR NON-AFRICAN AMERICAN > 60
[2018-12-14 08:09] VITALS: BP 127/86; PULSE 97; RESP 18; TEMP 98.6; O2SAT 97
[2018-12-14] MEDS: POLYETHYLENE GLYCOL 3350 17 GM/Dose PACKET PO SCH (10:42)
--- NOTE | 2018-12-14 11:41 | CP.PCM.PN ---
<JeanethAbel - Last Filed: 12/14/18 11:38> Subjective - Date & Time of Evaluation Date of Evaluation: 12/14/18 Time of Evaluation: 11:40 - Subjective Subjective: GI Progress Note for Dr. Mae Patient seen and examined at bedside. No acute overnight events. Patient states that abdominal pain is improved. Patient states that she only took one PPI pill before coming back to ER. Patient denies CP, SOB, n/v/d, fever, chills, BRIONES, or dizziness. Objective - Vital Signs/Intake and Output Vital Signs (last 24 hours): Temp Pulse Resp BP Pulse Ox 98.6 F 97 H 18 127/86 97 12/14/18 06:00 12/14/18 06:00 12/14/18 06:00 12/14/18 06:00 12/14/18 06:00 Intake and Output: 12/14/18 12/14/18 06:59 18:59 Intake Total 360 Balance 360 - Medications Medications: Current Medications Sodium Chloride (Sodium Chloride 0.9%) 1,000 mls @ 80 mls/hr IV .[id number] [facility] Last Admin: 12/13/18 10:24 Dose: 80 mls/hr Morphine Sulfate (Morphine) 1 mg IVP Q4H PRN PRN Reason: Pain, severe (8-10) Last Admin: 12/14/18 06:06 Dose: 1 mg Ondansetron HCl (Zofran Inj) 4 mg IVP Q6H PRN PRN Reason: Nausea/Vomiting Pantoprazole Sodium (Protonix Inj) 40 mg IVP DAILY [facility] Last Admin: 12/14/18 10:42 Dose: 40 mg Polyethylene Glycol (Miralax) 17 gm PO DAILY [facility] Last Admin: 12/14/18 10:42 Dose: 17 gm - Labs Labs: 12/14/18 06:45 12/14/18 06:45 PT 17.5 SECONDS (9.4-12.5) H 12/13/18 13:00 INR 1.55 12/13/18 13:00 APTT 44.7 Seconds (26.9-38.3) H 12/13/18 13:00 - Constitutional Appears: No Acute Distress - Head Exam Head Exam: NORMAL INSPECTION - Eye Exam Eye Exam: Normal appearance - ENT Exam ENT Exam: Mucous Membranes Moist, Normal Exam - Neck Exam Neck Exam: Normal Inspection - Respiratory Exam Respiratory Exam: Clear to Ausculation Bilateral. absent: Rales, Rhonchi, Wheezes - Cardiovascular Exam Cardiovascular Exam: RRR. absent: Gallop, Rubs, Murmur - GI/Abdominal Exam GI & Abdominal Exam: Soft, Tenderness (RUQ). absent: Distended, Guarding, Rebound - Extremities Exam Extremities Exam: Normal Inspection - Back Exam Back Exam: NORMAL INSPECTION - Neurological Exam Neurological Exam: Alert, Awake, Oriented x3 - Skin Skin Exam: Normal Color, Warm Assessment and Plan - Assessment and Plan (Free Text) Assessment: 33 yo F with no significant PMH presents to [facility] [place] with abdominal pain. - Abd/pelvis CT showed mild hepatomegaly, right-sided adnexal cyst - Abd US negative - Transvaginal US showed right ovarian enlargement and right ovarian follicular cyst 1. Abdominal pain 2. Constipation 3. Right ovarian enlargement/cyst 4. Coagulopathy Plan: - Symptoms improving, no GI intervention indicated at this time - Recommend follow up with PMD, for outpatient GI referral and elective endoscopy - Abdomen duplex ordered r/o Oscar Marie, portal vein thrombosis - Cont PPI, educated patient that medicine should be taken 30 min prior to breakfast - Miralax for constipation - Diet as tolerated Patient discussed in detail with Dr. Mae. Anselmo Eric DO PGY2 <Severo Mae V - Last Filed: 12/14/18 23:52> Objective - Vital Signs/Intake and Output Vital Signs (last 24 hours): Temp Pulse Resp BP Pulse Ox 98.6 F 97 H 18 127/86 97 12/14/18 06:00 12/14/18 06:00 12/14/18 06:00 12/14/18 06:00 12/14/18 06:00 - Medications Medications: Current Medications Sodium Chloride (Sodium Chloride 0.9%) 1,000 mls @ 80 mls/hr IV .[id number] [facility] Last Admin: 12/14/18 18:30 Dose: 80 mls/hr Morphine Sulfate (Morphine) 1 mg IVP Q4H PRN PRN Reason: Pain, severe (8-10) Last Admin: 12/14/18 20:41 Dose: 1 mg Ondansetron HCl (Zofran Inj) 4 mg IVP Q6H PRN PRN Reason: Nausea/Vomiting Pantoprazole Sodium (Protonix Ec Tab) 40 mg PO ACB [facility] Polyethylene Glycol (Miralax) 17 gm PO DAILY [facility] Last Admin: 12/14/18 10:42 Dose: 17 gm - Labs Labs: 12/14/18 06:45 12/14/18 06:45 PT 17.5 SECONDS (9.4-12.5) H 12/13/18 13:00 INR 1.55 12/13/18 13:00 APTT 44.7 Seconds (26.9-38.3) H 12/13/18 13:00 Attending/Attestation - Attestation I have personally seen and examined this patient.: Yes I have fully participated in the care of the patient.: Yes I have reviewed all pertinent clinical information, including history, physical exam and plan: Yes Notes (Text): This is an addendum to GI progress report dictated by the GI Fellow. The patient was seen and examined earlier. Medical records, lab studies, imagings were reviewed. Last 24 hours events reviewed. Agreed with the above treatment plan as outlined in GI Fellow 's notes with the addition of the following 12/14/18 23:52
--- NOTE | 2018-12-14 12:37 | CP.PCM.DIS ---
<Ana Kraus - Last Filed: 12/14/18 22:30> Provider - Provider Date of Admission: 12/12/18 23:53 Attending physician: Janet Quezada MD Consults: 12/13/18 02:02 Physician Consult Routine Comment: Consulting Provider: Hong Zapien Consulting Physician: Hong Zapien Reason for Consult: abd pain s/p colposcopy 4 days ago, R adnexal cyst fluid in [place] 12/13/18 02:04 Gastroenterology Consult Routine Comment: Consulting Provider: Severo Mae V Consulting Physician: Severo Mae V Reason for Consult: intractable abd pain, hepatomegaly, coagulopathy Time Spent in preparation of Discharge (in minutes): 45 Diagnosis - Discharge Diagnosis (1) Abdominal pain Status: Acute Hospital Course - Lab Results Lab Results: Micro Results 12/13/18 06:25 Blood Blood Culture - Preliminary NO GROWTH AFTER 24 HOURS 12/13/18 06:15 Blood Blood Culture - Preliminary NO GROWTH AFTER 24 HOURS Most Recent Lab Values WBC 6.2 10^3/uL (4.5-11.0) D 12/14/18 06:45 RBC 3.99 10^6/uL (3.5-6.1) 12/14/18 06:45 Hgb 11.5 g/dL (12.0-16.0) L 12/14/18 06:45 Hct 36.6 % (36.0-48.0) 12/14/18 06:45 MCV 91.7 fl (80.0-105.0) 12/14/18 06:45 MCH 28.8 pg (25.0-35.0) 12/14/18 06:45 MCHC 31.4 g/dl (31.0-37.0) 12/14/18 06:45 RDW 13.0 % (11.5-14.5) 12/14/18 06:45 Plt Count 223 10^3/uL (120.0-450.0) 12/14/18 06:45 MPV 10.8 fl (7.0-11.0) 12/14/18 06:45 Neut % (Auto) 43.5 % (50.0-68.0) L 12/14/18 06:45 Lymph % (Auto) 44.0 % (22.0-35.0) H 12/14/18 06:45 [place] % (Auto) 8.5 % (1.0-6.0) H 12/14/18 06:45 Eos % (Auto) 3.5 % (1.5-5.0) 12/14/18 06:45 Baso % (Auto) 0.5 % (0.0-3.0) 12/14/18 06:45 Lymph # (Auto) 2.7 (1.2-3.4) 12/14/18 06:45 [place] # (Auto) 0.5 (0.1-0.6) 12/14/18 06:45 Eos # (Auto) 0.2 (0.0-0.7) 12/14/18 06:45 Baso # (Auto) 0.03 K/mm3 (0.0-2.0) 12/14/18 06:45 Absolute Neuts (auto) 2.69 (1.4-6.5) 12/14/18 06:45 ESR 2 mm/hr (0.0-20.0) 12/12/18 21:49 PT 17.5 SECONDS (9.4-12.5) H 12/13/18 13:00 INR 1.55 12/13/18 13:00 APTT 44.7 Seconds (26.9-38.3) H 12/13/18 13:00 Thrombin Time TNP 12/13/18 08:30 Fibrinogen 345 mg/dl (200-400) 12/13/18 08:30 Fibrin Degrad Products <10 ug/ml (< 10 ug/mL) 12/13/18 08:30 Sodium 139 mmol/L (132-148) 12/14/18 06:45 Potassium 3.7 mmol/L (3.6-5.0) 12/14/18 06:45 Chloride 108 mmol/L (98-107) H 12/14/18 06:45 Carbon Dioxide 24 mmol/L (21-33) 12/14/18 06:45 Anion Gap 11 (10-20) 12/14/18 06:45 BUN 7 mg/dL (7-21) 12/14/18 06:45 Creatinine 0.7 mg/dl (0.7-1.2) 12/14/18 06:45 Est GFR ( Amer) > 60 12/14/18 06:45 Est GFR (Non-Af Amer) > 60 12/14/18 06:45 Random Glucose 81 mg/dL (70-110) 12/14/18 06:45 Calcium 8.7 mg/dL (8.4-10.5) 12/14/18 06:45 Phosphorus 3.3 mg/dL (2.5-4.5) 12/13/18 06:15 Magnesium 1.8 mg/dL (1.7-2.2) 12/13/18 06:15 Total Bilirubin 0.6 mg/dL (0.2-1.3) 12/14/18 06:45 AST 29 U/L (14-36) 12/14/18 06:45 ALT 19 U/L (7-56) 12/14/18 06:45 Alkaline Phosphatase 57 U/L (38-126) 12/14/18 06:45 Total Protein 6.5 g/dL (5.8-8.3) 12/14/18 06:45 Albumin 3.8 g/dL (3.0-4.8) 12/14/18 06:45 Globulin 2.7 gm/dL 12/14/18 06:45 Albumin/Globulin Ratio 1.4 (1.1-1.8) 12/14/18 06:45 Lipase 57 U/L (23-300) 12/12/18 21:49 Urine Color Yellow (YELLOW) 12/13/18 16:30 Urine Appearance Turbid (CLEAR) 12/13/18 16:30 Urine pH 6.5 (4.7-8.0) 12/13/18 16:30 Ur Specific [place] 1.020 (1.005-1.035) 12/13/18 16:30 Urine Protein Negative mg/dL (<30 mg/dL) 12/13/18 16:30 Urine Glucose (UA) Negative mg/dL (NEGATIVE) 12/13/18 16:30 Urine Ketones 15 mg/dL (NEGATIVE) H 12/13/18 16:30 Urine Blood Small (NEGATIVE) H 12/13/18 16:30 Urine Nitrate Negative (NEGATIVE) 12/13/18 16:30 Urine Bilirubin Negative (NEGATIVE) 12/13/18 16:30 Urine Urobilinogen 0.2 E.U./dL (<1 E.U./dL) 12/13/18 16:30 Ur Leukocyte Esterase Moderate Joshua/uL (NEGATIVE) H 12/13/18 16:30 Urine RBC 0 - 2 /hpf (0-2) 12/13/18 16:30 Urine WBC 15 - 20 /hpf (0-6) H 12/13/18 16:30 Ur Epithelial Cells 4 - 5 /hpf (0-5) 12/13/18 16:30 Urine Bacteria Trace /hpf (NONE) 12/13/18 16:30 Hepatitis A IgM Ab Negative (NEGATIVE) 12/12/18 21:49 Hep Bs Antigen Negative (NEGATIVE) 12/12/18 21:49 Hep B Core IgM Ab Negative (NEGATIVE) 12/12/18 21:49 Hepatitis C Antibody Negative (NEGATIVE) 12/12/18 21:49 HIV 1&2 Ag/Ab, 4th Gen Nonreactive (Nonreactive) 12/13/18 06:30 - Hospital Course Hospital Course: Upon Admission: Pt is a 33 y o female with no remarkable PMhx who presents to the ED c/o b/l upper abdominal pain, R > L for 4 days. States she had colposcopy performed in clinic for abnormal pap smear results 4 days ago, and states the abd pain started several hrs after she had her procedure. Denies any other inciting factors that might have elicited her symptoms. Denies hx sick contacts, recent URI symptoms, trying any recent foods, or recent travel. Pt states she recently went to ED at [facility] yesterday for the same symptoms, had CT scan done, and was sent home with script of Protonix. Pt states she took 1 dose of that medication, did not feel relief of symptoms, and thus decided to come to the ED again to be evaluated. States she feels generalized "achiness" all over her belly, admits to gas pain, states that she is unable to pass flatus. Reports last BM was 2 days ago. States that from time to time she has periods where she does not have a bowel movement for several days, even when she is feeling well. Admits to belching frequently, c/o associated heartburn-like symptoms. States she tried to induce vomiting to relieve her symptoms without relief. Admits to associated nausea. Also admits to diffuse back pain present in the entirety of her spine, more present in her lower back b/l. Admits to subjective fever and chills. Denies diarrhea. Denies headache, dizziness, shortness of breath, urinary complaints, or other symptoms currently. Hospital Course: Pt was being worked up for intractable abd pain. Pt was placed initially NPO and given IVF @ 80ml/hr. GI team (Dr. Mae) was consulted to evaluate the RUQ abd pain. CT abd/pelvis done on 12/12/18 in the ER demonstrated borderline mildly enlarged liver measuring nearly 19 cm and a small R adnexal cyst. Per GI abd U/s was done and noted to be unremarkable. Abd duplex US was ordered to r/o budd chiari vs portal vein thrombosis. Pt will follow up US result as outpt. Pt also noted to have R adnexal cyst on CT. [employer] consulted (Dr. Zapien) and transvaginal US was performed which showed: R ovarian enlargement 2.2 cm x 1.8 cm x 1.8 cm follicular ovarian cyst, small amt fluid in posterior cul-de-sac. Pt was given Morphine 1 mg q4h prn for her intractable abd pain and zofran prn for nausea. Pt had no noted leukocytosis on admission. Lipase, LFTs wnl. Hepatitis panel and HIV were noted to be negative., CMV IGG was positive however IgM was negative making acute infxn less likely. Pt was slowly advanced on her diet from initial NPO to CLD, FLD and then soft diet which the pt was able to tolerate without associated n/v. Pt was also noted to have increased PT (though INR was 1.5) and increased PTT, which also showed on repeat labs. Pt is asymptomatic at this time and has no bleeding diathesis at this time. Pt was verbally instructed to follow up with her PMD within a week to have levels redrawn and to follow up with PMD recs. Pt instructed to take protonix 40 qd which she states has been helping with her abd pain and told to follow up with her PMD to help her get GI referral for close follow up and monitoring of the pts condition. GI team cleared the pt for d/c and recommeneded close GI follow up. Pt was explained plan for discharge and the pt expressed understanding and agreement with the plan. Pts questions and concerns were addressed prior to d/c. Please refer to the medical chart for more info. Discharge Exam - Head Exam Head Exam: ATRAUMATIC, NORMAL INSPECTION, NORMOCEPHALIC - Eye Exam Eye Exam: EOMI, Normal appearance, PERRL - Respiratory Exam Respiratory Exam: Clear to PA & Lateral, NORMAL BREATHING PATTERN, UNREMARKABLE. absent: Accessory Muscle Use, Chest Wall Tenderness, Rales, Rhonchi, Wheezes, Respiratory Distress - Cardiovascular Exam Cardiovascular Exam: RRR, +S1, +S2. absent: Gallop, Rubs - GI/Abdominal Exam GI & Abdominal Exam: Normal Bowel Sounds, Soft, Tenderness (present in the RUQ, but tenderness has improved from previous exams.), Unremarkable. absent: Distended, Firm, Guarding - Extremities Exam Extremities exam: normal capillary refill, normal inspection - Back Exam Back exam: NORMAL INSPECTION. absent: CVA tenderness (L), CVA tenderness (R) - Neurological Exam Neurological exam: Alert, Oriented x3 - Psychiatric Exam Psychiatric exam: Normal Affect, Normal Mood - Skin Skin Exam: Dry, Normal Color, Warm Discharge Plan - Discharge Medications Prescriptions: RX: Pantoprazole [Protonix EC Tab] 40 mg PO ACB #14 ect RX: Polyethylene Glycol 3350 [Miralax] 17 gm PO DAILY #14 packet - Follow Up Plan Condition: FAIR Disposition: HOME/ ROUTINE Instructions: Flu, Fever of Unknown Origin, Flu, Adult (DC), Gastric Ulcer (DC), Ovarian Cyst (DC), Acute Abdominal Pain (DC), Acute Abdominal Pain (GEN) Additional Instructions: - Please follow up with your PMD, Dr. Chavez within 1 week - Please take protonix 40 mg daily as directed to prevent ulcers or worsening GI symptoms. - Please follow up with PMD regarding further Gastroenterology (stomach doctor) evaluation - We are providing a laxative (Miralax) to use as needed for constipation. - If your symptoms change or worsen please return to the [facility] ED Referrals: Severo Mae MD [Medical Doctor] - <Janet Quezada - Last Filed: 12/15/18 14:12> Provider - Provider Date of Admission: 12/12/18 23:53 Attending physician: Janet Quezada MD Consults: 12/13/18 02:02 Physician Consult Routine Comment: Consulting Provider: Hong Zapien Consulting Physician: Hong Zapien Reason for Consult: abd pain s/p colposcopy 4 days ago, R adnexal cyst fluid in [place] 12/13/18 02:04 Gastroenterology Consult Routine Comment: Consulting Provider: Severo Mae V Consulting Physician: Severo Mae V Reason for Consult: intractable abd pain, hepatomegaly, coagulopathy Hospital Course - Lab Results Lab Results: Micro Results 12/13/18 16:30 Urine,Clean Catch Urine Culture - Preliminary Gram Positive Cocci 12/13/18 06:25 Blood Blood Culture - Preliminary NO GROWTH AFTER 48 HOURS 12/13/18 06:15 Blood Blood Culture - Preliminary NO GROWTH AFTER 48 HOURS Most Recent Lab Values WBC 6.2 10^3/uL (4.5-11.0) D 12/14/18 06:45 RBC 3.99 10^6/uL (3.5-6.1) 12/14/18 06:45 Hgb 11.5 g/dL (12.0-16.0) L 12/14/18 06:45 Hct 36.6 % (36.0-48.0) 12/14/18 06:45 MCV 91.7 fl (80.0-105.0) 12/14/18 06:45 MCH 28.8 pg (25.0-35.0) 12/14/18 06:45 MCHC 31.4 g/dl (31.0-37.0) 12/14/18 06:45 RDW 13.0 % (11.5-14.5) 12/14/18 06:45 Plt Count 223 10^3/uL (120.0-450.0) 12/14/18 06:45 MPV 10.8 fl (7.0-11.0) 12/14/18 06:45 Neut % (Auto) 43.5 % (50.0-68.0) L 12/14/18 06:45 Lymph % (Auto) 44.0 % (22.0-35.0) H 12/14/18 06:45 [place] % (Auto) 8.5 % (1.0-6.0) H 12/14/18 06:45 Eos % (Auto) 3.5 % (1.5-5.0) 12/14/18 06:45 Baso % (Auto) 0.5 % (0.0-3.0) 12/14/18 06:45 Lymph # (Auto) 2.7 (1.2-3.4) 12/14/18 06:45 [place] # (Auto) 0.5 (0.1-0.6) 12/14/18 06:45 Eos # (Auto) 0.2 (0.0-0.7) 12/14/18 06:45 Baso # (Auto) 0.03 K/mm3 (0.0-2.0) 12/14/18 06:45 Absolute Neuts (auto) 2.69 (1.4-6.5) 12/14/18 06:45 ESR 2 mm/hr (0.0-20.0) 12/12/18 21:49 PT 17.5 SECONDS (9.4-12.5) H 12/13/18 13:00 INR 1.55 12/13/18 13:00 APTT 44.7 Seconds (26.9-38.3) H 12/13/18 13:00 Thrombin Time TNP 12/13/18 08:30 Fibrinogen 345 mg/dl (200-400) 12/13/18 08:30 Fibrin Degrad Products <10 ug/ml (< 10 ug/mL) 12/13/18 08:30 Sodium 139 mmol/L (132-148) 12/14/18 06:45 Potassium 3.7 mmol/L (3.6-5.0) 12/14/18 06:45 Chloride 108 mmol/L (98-107) H 12/14/18 06:45 Carbon Dioxide 24 mmol/L (21-33) 12/14/18 06:45 Anion Gap 11 (10-20) 12/14/18 06:45 BUN 7 mg/dL (7-21) 12/14/18 06:45 Creatinine 0.7 mg/dl (0.7-1.2) 12/14/18 06:45 Est GFR ( Amer) > 60 12/14/18 06:45 Est GFR (Non-Af Amer) > 60 12/14/18 06:45 Random Glucose 81 mg/dL (70-110) 12/14/18 06:45 Calcium 8.7 mg/dL (8.4-10.5) 12/14/18 06:45 Phosphorus 3.3 mg/dL (2.5-4.5) 12/13/18 06:15 Magnesium 1.8 mg/dL (1.7-2.2) 12/13/18 06:15 Total Bilirubin 0.6 mg/dL (0.2-1.3) 12/14/18 06:45 AST 29 U/L (14-36) 12/14/18 06:45 ALT 19 U/L (7-56) 12/14/18 06:45 Alkaline Phosphatase 57 U/L (38-126) 12/14/18 06:45 Total Protein 6.5 g/dL (5.8-8.3) 12/14/18 06:45 Albumin 3.8 g/dL (3.0-4.8) 12/14/18 06:45 Globulin 2.7 gm/dL 12/14/18 06:45 Albumin/Globulin Ratio 1.4 (1.1-1.8) 12/14/18 06:45 Lipase 57 U/L (23-300) 12/12/18 21:49 Urine Color Yellow (YELLOW) 12/13/18 16:30 Urine Appearance Turbid (CLEAR) 12/13/18 16:30 Urine pH 6.5 (4.7-8.0) 12/13/18 16:30 Ur Specific [place] 1.020 (1.005-1.035) 12/13/18 16:30 Urine Protein Negative mg/dL (<30 mg/dL) 12/13/18 16:30 Urine Glucose (UA) Negative mg/dL (NEGATIVE) 12/13/18 16:30 Urine Ketones 15 mg/dL (NEGATIVE) H 12/13/18 16:30 Urine Blood Small (NEGATIVE) H 12/13/18 16:30 Urine Nitrate Negative (NEGATIVE) 12/13/18 16:30 Urine Bilirubin Negative (NEGATIVE) 12/13/18 16:30 Urine Urobilinogen 0.2 E.U./dL (<1 E.U./dL) 12/13/18 16:30 Ur Leukocyte Esterase Moderate Joshua/uL (NEGATIVE) H 12/13/18 16:30 Urine RBC 0 - 2 /hpf (0-2) 12/13/18 16:30 Urine WBC 15 - 20 /hpf (0-6) H 12/13/18 16:30 Ur Epithelial Cells 4 - 5 /hpf (0-5) 12/13/18 16:30 Urine Bacteria Trace /hpf (NONE) 12/13/18 16:30 CMV IgG Ab 3.80 U/mL H 12/13/18 08:30 CMV IgM Ab <30.00 AU/mL 12/13/18 08:30 Hepatitis A IgM Ab Negative (NEGATIVE) 12/12/18 21:49 Hep Bs Antigen Negative (NEGATIVE) 12/12/18 21:49 Hep B Core IgM Ab Negative (NEGATIVE) 12/12/18 21:49 Hepatitis C Antibody Negative (NEGATIVE) 12/12/18 21:49 HIV 1&2 Ag/Ab, 4th Gen Nonreactive (Nonreactive) 12/13/18 06:30 Attending/Attestation - Attestation I have personally seen and examined this patient.: Yes I have fully participated in the care of the patient.: Yes I have reviewed all pertinent clinical information, including history, physical exam and plan: Yes Notes (Text): 12/15/18 14:05 Medical record note made by the resident after discussion with my direction and input after the patient was personally seen and examined by me. I have reviewed the chart and agree that the record accurately reflects by personal performance of the history, physical exam, data review, and medical decision-making, in the course for the patient. I have also personally directed the plan of care. 33 y o female with no significant PMhx who presents to the ED c/o b/l upper abdominal pain, R > L for 4 days. States she had colposcopy performed in clinic for abnormal pap smear results 4 days ago, and states the abd pain started several hrs after she had her procedure. Denies any other inciting factors that might have elicited her symptoms. Denies hx sick contacts, recent URI symptoms, trying any recent foods, or recent travel. CT scan of abdomen and Pelvis showed borderline /mild enlargement of liver, Abdominal USG was unremarkable. Patient had mild elevation of INR 1.5 but there is no H/O of bleeding.LFT are normal.There is no thrombocytopenia. Patient right upper quadrant pain has improved.She is tolerating food. Patient will be discharged home and will follow up with PCP. She will be discharged home and will follow up with PCP. Management plan was discussed in detail with patient. Education was provided.
[2018-12-14] MEDS: Sodium Chloride 0.9% 1,000 ML IV SCH (18:30)
--- NOTE | 2018-12-14 20:56 | US ---
PROCEDURE: Portal vein duplex ultrasound. CLINICAL HISTORY: Deteriorating liver function. Evaluate for portal vein thrombosis. PHYSICIAN(S): Robby Abreu M.D. FINDINGS: The extrahepatic portal vein is patent with hepatopetal flow. No sonographic evidence for thrombus or obstruction is seen. The 3 hepatic veins are visualized centrally and patent. The hepatic artery is patent. The spleen is normal in size. No ascites is appreciated the upper abdomen IMPRESSION: 1. Patent portal vein with hepatopetal flow.
[2018-12-15] MEDS ORDERED: Pantoprazole 40 mg EC Tab PO SCH (07:30)
== END 2018-12-14 23:40 | disposition home or self-care (01) ==
LOC: ED 19:36 → ERH 23:53 → 5RNO 12-13 02:07
PROVIDERS: ADMIT Internal Medicine; ATTEND Internal Medicine
DX: R10.11 Right upper quadrant pain (principal); D68.9 Coagulation defect, unspecified; K59.00 Constipation, unspecified; N83.01 Follicular cyst of right ovary
CPT/HCPCS: 36415; 74018; 76700; 76830; 80053; 80074; 81001; 83690; 83735; 84100; 84597; 85025; 85210; 85220; 85260; 85362; 85384; 85610; 85651; 85730; 85732; 86644; 86645; 86663; 87040; 87086; 87389; 96374; 96375; 96376; 99284; C9113; G0378; J2270; J7030